=== PATIENT | female | born 1995 | race African-American/Black ===

== ENCOUNTER 2017-08-15 15:34 | Outpatient (CLI) | payer MEDICAID | END 2017-08-15 15:35 | disposition home or self-care (01) | LOC: BICULT 15:34 | PROVIDERS: ATTEND Family Medicine | DX: Z34.92 Encounter for supervision of normal pregnancy, unspecified, second trimester (principal); Z3A.20 20 weeks gestation of pregnancy | CPT/HCPCS: 76805 ==

== ENCOUNTER 2017-10-22 10:22 | Outpatient (CLI) | payer OTHER | END 2017-10-22 10:23 | disposition home or self-care (01) | LOC: BICULT 10:22 | PROVIDERS: ATTEND Family Medicine | DX: Z34.93 Encounter for supervision of normal pregnancy, unspecified, third trimester (principal); Z3A.29 29 weeks gestation of pregnancy | CPT/HCPCS: 76805 ==

== ENCOUNTER 2017-11-06 14:43 | Outpatient (CLI) | payer OTHER ==
--- NOTE | 2017-11-06 16:04 | ULT ---
ULTRASOUND BIOPHYSICAL PROFILE: HISTORY: 22-year-old female in third trimester of with gestational diabetes. FINDINGS: breathin tone: 2 movement: 2 Amniotic fluid volume: 2 IMPRESSION: Normal biophysical profile score of 8/8, excluding the non-stress test. elvis [] POS: [facility]
== END 2017-11-06 14:44 | disposition home or self-care (01) ==
LOC: ULT 14:43
PROVIDERS: ATTEND Nurse Practitioner
DX: O09.93 Supervision of high risk pregnancy, unspecified, third trimester (principal)
CPT/HCPCS: 76819

== ENCOUNTER 2017-11-27 14:37 | Outpatient (CLI) | payer OTHER ==
--- NOTE | 2017-11-27 17:25 | ULT ---
ULTRASOUND BIOPHYSICAL PROFILE: 11/27/2017 HISTORY: The patient is in the third trimester of with gestational diabetes. FINDINGS: There is a single intrauterine gestation, in cephalic presentation. Cardiac Doppler does demonstrate heart tones with a heart rate of 128 beats per minute. There is a normal amount of amni otic fluid with an amniotic fluid volume calculated at 19.7 cm. A score of 2 was obtained each for breathing, tone, movement, and amniotic fluid vo lume. The placenta is located anteriorly without evidence of placenta previa. IMPRESSION: 1. Single intrauterine gestation with heart tones documented. 2. A total biophysical profile score of 8/8 is obtained. POS: [facility]
== END 2017-11-27 14:38 | disposition home or self-care (01) ==
LOC: ULT 14:37
PROVIDERS: ATTEND Student in an Organized Health Care Education/Training Program
DX: O09.93 Supervision of high risk pregnancy, unspecified, third trimester (principal)
CPT/HCPCS: 76819

== ENCOUNTER 2017-12-08 21:00 | Inpatient (IN) | payer OTHER ==
[2017-12-08] MEDS ORDERED: Ibuprofen 800 MG TAB PO PRN (22:41)
[2017-12-08] MEDS ORDERED: Carboprost 250 MCG/ML AMP IM PRN (22:41)
[2017-12-08] MEDS ORDERED: Zolpidem Tartrate 5 MG TAB PO PRN (22:41)
[2017-12-08] MEDS ORDERED: HYDROcodone/Acetaminophen 5/325 mg Tablet PO PRN (22:41)
[2017-12-08] MEDS ORDERED: Lidocaine 1% (PF) 30 ML VIAL SC PRN (22:41)
[2017-12-08] MEDS ORDERED: NS / Oxytocin 40 units/1000ml 1,000 ML IV PRN (22:41)
[2017-12-08] MEDS ORDERED: Misoprostol 200 MCG TAB PR PRN (22:41)
[2017-12-08] MEDS ORDERED: Methylergonovine 0.2 MG/ML VIAL IM PRN (22:41)
[2017-12-08] MEDS ORDERED: Promethazine HCl 25 MG/ML VIAL IM PRN (22:41)
[2017-12-08] MEDS ORDERED: Diphenoxylate HCl/Atropine Tablet PO PRN (22:41)
[2017-12-08] MEDS ORDERED: Ondansetron HCl/PF 4 MG/2 ML Vial IVP PRN (22:41)
[2017-12-08] MEDS ORDERED: Acetaminophen 500 MG TAB PO PRN (22:41)
[2017-12-08 23:25] VITALS: BMI 65.7
[2017-12-09] MEDS: Lactated Ringer's 1,000 ML IV SCH ×3 (00:03→15:04)
[2017-12-09] MEDS: Misoprostol 100 MCG TAB VAG SCH ×4 (00:04→20:43)
[2017-12-09 00:36] LABS: Hemoglobin 11.4 g/dL (12.0-16.0); Mean Corpuscular HGB CONC 31.3 g/dL (32.0-36.0); Mean Corpuscular Hemoglobin 25.7 pg (25.0-35.0); Mean Corpuscular Volume 82.1 fl (77.0-87.0); Mean Platelet Volume 12.1 fL (7.4-10.4); Platelet Count 123 thou/uL (130-400); RBC Distribution Width 15.2 % (11.5-14.5); Red Blood Cell (RBC) Count 4.45 mill/uL (4.00-5.20); White Blood Cell (WBC) Count 7.6 thou/uL (4.8-10.8)
[2017-12-09 00:58] LABS: Syphilis Antibody Nonreactive (Nonreactive); Syphilis Antibody Index 0.08 S/CO (<1.00 Non-Reactive)
[2017-12-09 00:59] LABS: HBSAg Index 0.23 S/CO (0-0.99); Hep B Surf Ag Non-Reactive S/CO (NonReactive)
[2017-12-09 01:02] LABS: ALT (SGPT) 18 U/L (8-55); AST (SGOT) 23 U/L (5-34); Albumin 3.4 g/dL (3.5-5.0); Alkaline Phosphatase 216 U/L (40-150); Anion Gap 16 mmol/L (10-20); BUN (Urea Nitrogen) 7 mg/dL (7.0-18.7); Bilirubin, Total 0.5 mg/dL (0.2-1.2); Calc. Creatinine Clearance 373 mL/min (70-130); Calcium 9.1 mg/dL (7.8-10.44); Carbon Dioxide 17 mmol/L (22-29); Chloride 108 mmol/L (98-107); Estimated GFR-MDRD Greater than 90; Globulin 3.1 g/dL (2.4-3.5); Glucose 81 mg/dL (70-105); Potassium 4.3 mmol/L (3.5-5.1); Protein, Total 6.5 g/dL (6.0-8.3); Sodium 137 mmol/L (136-145)
[2017-12-09] MEDS: Butorphanol Tartrate 1 MG/ML VIAL SLOW IVP PRN ×2 (04:19→06:06)
[2017-12-09] MEDS: NS w/ Oxytocin 10 units 500 ML IV SCH (06:14)
[2017-12-09] MEDS ORDERED: DISCONTINUE ALL PREVIOUS NARCOTICS FS SCH (07:45)
[2017-12-09] MEDS ORDERED: Bupivacaine 0.5% 20 ML, fentaNYL Citrate/PF 400 MCG in Sodium Chloride 0.9% 72 ML EPIDURAL SCH ×2 (07:45→10:00)
--- NOTE | 2017-12-09 07:56 | PDOC.LDHP ---
Labor and Delivery H&P Chief complaint: scheduled induction HPI: 22yo at 37w3d by 20w sono with uncontrolled A2GDM, on insulin, morbid obesity for IOL. s/p cytotec x 1. Painful ctx 02/14. Current gestational age (weeks): 37 Due date: 12/27/17 Dating criteria: second trimester ultrasound Grav: 1 Para: 0 Current complications: gestational diabetes (on insulin, uncontrolled until 1 wk ago) Abnormal US findings: Yes (S>D) Past Medical History: obesity Current medications: pre- vitamins, other (NPH/lispro) Previous surgical history: none Allergies/Adverse Reactions: Allergies Allergy/AdvReac Type Severity Reaction Status Date / Time No Known Allergies Allergy Verified 12/08/17 23:11 Social history: none - Physical Exam Abnormal vital signs: mild range bp General: NAD Heart: RRR Lungs: CTAB Abdomen: gravid Extremeties: pitting edema (1+) FHT: category 1 [place] contractions every: 1-3min - Vaginal Exam cm dilated: 3 Effacement: 90% Station: -2 (arom clear IUP FSE placed) - OB Labs Blood type: O RH: positive Antibody Screen: negative HIV: negative RPR: negative HEPSAg: negative 1 hour GCT: positive GBS: negative Urine drug screen: negative Rubella: immune - Assessment L&D Assessment: medically indicated induction - Plan Plan: admit to L&D, labor augmentation if indicated, informed consent obtained, anesthesia consult for pain management -: Patient was a late transfer [place], with GDM at 34wk but untreated. Pt had uncontrolled BS with diet alone (>200) and was started on insulin 2wk ago. Pt has had fair control since starting insulin. EFW on sono > 99%ile, NST and BPPs have been reassuring. Took PM NPH insulin, Accuchecks q4hr, have been normal, will use SSI prn. Mildly elevated BP (difficult to get accurate reading ) No sx PIH, montior BP, send UA, PIH labs neg except mildly decr Plt. Anesthesia consult for morbid obesity, pt is at high risk for CS and complications due to above reasons and she understands this. FHT reassuring, internals placed to allow for better monitoring.
[2017-12-09] MEDS ORDERED: Eucerin (Mineral Oil/Petrolatum,White) 30 gm Jar TOP PRN ×2 (09:48→19:29)
[2017-12-09] MEDS ORDERED: Promethazine HCl 25 MG/ML VIAL IM PRN ×3 (09:48→22:56)
[2017-12-09] MEDS ORDERED: Naloxone HCl 0.4 mg/ml Vial IVP PRN ×3 (09:48→19:29)
[2017-12-09] MEDS ORDERED: Lactated Ringer's 500 ML IV PRN (09:48)
[2017-12-09] MEDS ORDERED: Acetaminophen 325 MG TAB PO PRN ×2 (09:48→22:56)
[2017-12-09] MEDS ORDERED: ePHEDrine/0.9% NaCl/PF SYRINGE 50 mg/10 ml SLOW IVP PRN (09:48)
[2017-12-09] MEDS ORDERED: Fentanyl 4mcg/Marcaine 0.1% Cassette 100 ML EPIDURAL SCH (10:00)
[2017-12-09] MEDS ORDERED: Communication Order-Pharmacy FS SCH ×2 (10:00→19:30)
[2017-12-09] MEDS ORDERED: Ketorolac Tromethamine 30 MG/ML VIAL ONE (13:37)
[2017-12-09] MEDS ORDERED: Dexamethasone 20 MG/5 ML VIAL ONE (13:37)
--- NOTE | 2017-12-09 14:52 | PDOC.LDPN ---
Labor & Delivery Progress Note - Subjective Subjective: comfortable - Objective Vital signs reviewed and normal: yes General: NAD Uterine fundus: non tender Dilation: 8 Effacement: 100% Station: 0 FHT: category 2, late decelerations, absent or minimal variables [place] contractions every: 2min Resuscitative measures: maternal oxygen, maternal position change, other ( pitocin off) Plan: resuscitative measures -: allow to rest with resuscitative measures, once Cat 1 restart pitocin. Working epidural.
--- NOTE | 2017-12-09 18:43 | PDOC.LDPN ---
Labor & Delivery Progress Note - Subjective Subjective: vaginal pressure - Objective Vital signs reviewed and normal: yes Abnormal vital signs: occasional mild range pressures General: NAD Uterine fundus: non tender Dilation: 10 Effacement: 100% Station: 1+ FHT: category 2, late decelerations (< 50% contractions), absent or minimal variables [place] contractions every: q2-3min - Assessment (1) Gestational diabetes mellitus (GDM) requiring insulin Code(s): O24.414 - GESTATIONAL DIABETES IN , INSULIN CONTROLLED Current Visit: Yes Status: Acute (2) Gestational hypertension Code(s): O13.9 - GESTATIONAL HTN W/O SIGNIFICANT PROTEINURIA, UNSP TRIMESTER Current Visit: Yes Status: Acute (3) 37 weeks gestation of Code(s): Z3A.37 - 37 WEEKS GESTATION OF Current Visit: Yes Status : Acute -: FHT Cat 2- pitocin off, on O2, positioned on side. Pt unable to move about due to habitus and is exhausted. She is requesting CS. FHT improved after pitocin off. Tmax 102- started Amp/Gent, given tylenol. Chorioamnionitis. Dispo for PCS due to NRFHT and maternal exhaustion. Risks of infection bleeding transfusion wound complications (corinne with patient's obesity) discussed. Pt understands and wishes to proceed. All questions answered. Occ mild BP, no sx PIH, labs wnl.
[2017-12-09] MEDS ORDERED: CEFAZOLIN/Water 2 GM/20 ML SYRINGE ONE (18:50)
[2017-12-09] MEDS ORDERED: Bicitra 30 ML UDCUP ONE (18:50)
[2017-12-09] MEDS ORDERED: CEFAZOLIN/Water 2 GM/20 ML SYRINGE SLOW IVP SCH (19:00)
[2017-12-09] MEDS ORDERED: Bicitra 30 ML UDCUP PO SCH (19:00)
[2017-12-09] MEDS ORDERED: Azithromycin 500 MG in Sodium Chloride 0.9% 250 ML 250 ML IVPB SCH (19:00)
[2017-12-09] MEDS ORDERED: Lidocaine 2% 10 ML INJ ONE (19:08)
[2017-12-09] MEDS ORDERED: Ketorolac Tromethamine 30 MG/ML VIAL IVP PRN (19:29)
[2017-12-09] MEDS ORDERED: diphenhydrAMINE 50 MG/ML VIAL IVP PRN (19:29)
[2017-12-09] MEDS ORDERED: Meperidine HCl/PF 25 MG/ML VIAL SLOW IVP PRN (19:29)
[2017-12-09] MEDS ORDERED: Promethazine HCl 25 MG SUPP PR PRN (19:29)
[2017-12-09] MEDS ORDERED: HYDROmorphone 2 MG/ML VIAL SLOW IVP PRN (19:29)
[2017-12-09] MEDS ORDERED: Ondansetron HCl/PF 4 MG/2 ML Vial IVP PRN ×3 (19:29→22:56)
[2017-12-09] MEDS ORDERED: Naloxone HCl 0.4 mg/ml Vial IV PRN (19:29)
[2017-12-09] MEDS ORDERED: Ketorolac Tromethamine 30 MG/ML VIAL IVP SCH (19:30)
[2017-12-09] MEDS ORDERED: Dexamethasone 4 mg/ml Vial ONE (19:34)
[2017-12-09] MEDS ORDERED: PHENYLEPHRINE-NS 100 MCG/ML 10 ML SYRINGE ONE (19:38)
[2017-12-09 19:44] LABS: Actual Bicarbonate (HCO3a) 24.1 mEq/L (22-28)
[2017-12-09 19:45] LABS: Analyzer IN Cardio OR; Base Excess (BEa) -5.3 mEq/L (-2.0 to +3.0)
--- NOTE | 2017-12-09 20:22 | PDOC.OPDEL ---
OB Operative/Delivery Note Delivery Dr/Surgeon: Jesika Assist: Herb Pre-Delivery Diagnosis: non-reassuring tracing Procedure/Post Delivery Dx: primary low transverse CS (ID GDM, GHTN) Weeks gestation: 37 Anesthesia: epidural - Findings A Sex: male Weight: 8 lb 8 oz - 1 min: 6 - 5 min: 9 - Additional Findings/Plan Placenta delivered: spontaneous findings: low transverse hysterotomy without extension, normal uterus, normal tubes, normal ovaries Estimated blood loss: 1000 Compilations/Other Findings: recurrent deep late decelerations to 60s prior to going to OR, in OR baby in 120s, stat CS proceeded with, Cord ph 7.2, placenta to pathology. Post delivery plan: routine recovery
[2017-12-09] MEDS ORDERED: Meperidine HCl/PF 25 MG/ML VIAL ONE (20:46)
[2017-12-09] MEDS: Gentamicin Sulfate 490 MG in Sodium Chloride 0.9% 100 ML IVPB SCH (20:52)
[2017-12-09] MEDS ORDERED: Morphine 4 MG/ML VIAL ONE (21:16)
[2017-12-09] MEDS ORDERED: Clindamycin/D5W 900 mg/50 ml Premix Bag ONE (21:56)
[2017-12-09] MEDS: Clindamycin/D5W 900 MG in Premix Bag 1 BAG IVPB SCH (22:14)
[2017-12-09] MEDS ORDERED: Labetalol 100 MG TAB PO SCH (22:30)
[2017-12-09] MEDS ORDERED: diphenhydrAMINE 25 MG CAP PO PRN (22:56)
[2017-12-09] MEDS ORDERED: Simethicone Chewable 80 MG TAB PO PRN (22:56)
[2017-12-09] MEDS ORDERED: Lanolin Ointment 7 GM TUBE TOP PRN (22:56)
[2017-12-09] MEDS ORDERED: HYDROcodone/Acetaminophen 5/325 mg Tablet PO PRN ×2 (22:56)
[2017-12-09] MEDS ORDERED: Bisacodyl 10 MG SUPP PR PRN (22:56)
[2017-12-09] MEDS ORDERED: Ibuprofen 800 MG TAB PO SCH (23:15)
[2017-12-09] MEDS ORDERED: Docusate Calcium (SURFAK) 240 MG CAP PO SCH (23:15)
[2017-12-09] MEDS ORDERED: Ampicillin 2 GM in Sodium Chloride 0.9% 100 ML IVPB SCH (23:59)
--- NOTE | 2017-12-10 01:59 | OP ---
DATE OF OPERATION: 12/09/2017 PREOPERATIVE DIAGNOSES: 1. Intrauterine at 37 weeks and 3 days. 2. Nonreassuring heart tones. 3. Insulin-dependent gestational diabetes, uncontrolled. 4. Gestational hypertension. 5. Morbid obesity. 6. Chorioamnionitis. POSTOPERATIVE DIAGNOSES: 1. Intrauterine at 37 weeks and 3 days. 2. Nonreassuring heart tones. 3. Insulin-dependent gestational diabetes, uncontrolled. 4. Gestational hypertension. 5. Morbid obesity. 6. Chorioamnionitis. PROCEDURE: Primary low transverse section via Pfannenstiel skin incision. ANESTHESIA: Epidural. ATTENDING SURGEON: Mariah Canchola M.D. CHILD PSYCHIATRIST: Dr. Jaime. ESTIMATED BLOOD LOSS: One liter. INTRAVENOUS FLUIDS: 1200 mL crystalloid. URINE OUTPUT: 100 mL of blood tinged urine. PATHOLOGY: Placenta. COMPLICATIONS: None. DRAINS: Napoles catheter. FINDINGS: Male infant, cephalic presentation, and significant caput and molding. Apgars of 6 and 9. Clear amniotic fluid, weighing 8 pounds and 8 ounces. Cord pH was 7.2. OPERATIVE TECHNIQUE: Patient was taken to the operating room, where epidural anesthesia was found to be adequate. FHTs once in the OR were in the 120s. Prior to this, FHTs were deep recurrently decel erations 260s. Patient was prepped and draped in a sterile fashion. A Pfannenstiel skin incision wa s made and carried down to the underlying subcutaneous tissue with the knife. The fascia was nicked in the midline with the knife and carried laterally with the Garcia scissors. The superior aspect of t he fascia was tented with 2 Kochers and dissected off the rectus with the Garcia scissors. The inferio r aspect of the fascia was tented with 2 Kochers and dissected off the rectus with the Garcia scissors down to the pubic symphysis. The rectus were bluntly divided in the midline. The peritoneum was ten dolly up with hemostat and entered into sharply with the Metzenbaums and manually retracted. The Hima s O retractor was placed and the vesicouterine peritoneum was identified and a bladder flap was creat ed. Lower uterine segment was incised in a transverse fashion extended with Fleming maneuver. The infa nt's head was brought to the hysterotomy and delivered with fundal pressure. The 's cord was c lamped and handed to awaiting trent team. A cord gas was obtained and cord blood was obtained and antonia dominguez was allowed to spontaneously deliver. Trailing membranes were removed with a laparotomy sponge. The hysterotomy was repaired with #1 Monocryl in a running locking fashion. A second imbricating l mayra of #1 Monocryl was placed. Hemostasis was noted to be excellent. Pelvis was irrigated and suct ioned and the Jag O retractor was removed. The peritoneum was closed with a 2-0 chromic in a runn ing fashion. The rectus muscles were examined and noted to be hemostatic. The fascia was reapproxim ated with an 0 PDS x2 with excellent reapproximation. The subcutaneous tissue was irrigated and caut erized of any bleeders and reapproximated with 2-0 plain gut in a running fashion. Skin was closed w ith 4-0 Monocryl in a subcuticular fashion and Steri-Strips were applied as well as Prevena wound VAC . Patient tolerated procedure well. Sponge, lap, and needle counts were correct x2. Patient was ta belkis to recovery room in stable condition. Patient received Ancef 3 grams and azithromycin 500 mg for prophylaxis and will be continued on ampicillin, gentamicin, and clindamycin for chorioamnionitis.
[2017-12-10 05:38] LABS: Hemoglobin 10.3 g/dL (12.0-16.0); Mean Corpuscular HGB CONC 31.8 g/dL (32.0-36.0); Mean Corpuscular Hemoglobin 25.6 pg (25.0-35.0); Mean Corpuscular Volume 80.5 fl (77.0-87.0); Mean Platelet Volume 11.7 fL (7.4-10.4); Platelet Count 124 thou/uL (130-400); RBC Distribution Width 15.3 % (11.5-14.5); Red Blood Cell (RBC) Count 4.02 mill/uL (4.00-5.20); White Blood Cell (WBC) Count 17.6 thou/uL (4.8-10.8)
[2017-12-10] MEDS: Clindamycin/D5W 900 MG in Premix Bag 1 BAG IVPB SCH ×3 (06:14→21:30)
[2017-12-10] MEDS ORDERED: Bupivacaine 0.25% HCL 30 ML VIAL ONE (08:28)
[2017-12-10] MEDS ORDERED: Terbutaline Sulfate 1 MG/ML VIAL ONE (08:28)
[2017-12-10] MEDS: Ibuprofen 800 MG TAB PO SCH ×3 (08:45→21:29)
[2017-12-10] MEDS: Ferrous Sulfate 325 MG TAB PO SCH ×2 (08:52→17:56)
[2017-12-10] MEDS: NS w/ Oxytocin 10 units 500 ML IV SCH (08:52)
[2017-12-10] MEDS: Lactated Ringer's 1,000 ML IV SCH (08:52)
[2017-12-10] MEDS ORDERED: Adacel (T-DAP) 0.5 ML VIAL IM ONE (09:00)
[2017-12-10] MEDS: Enoxaparin Sodium 40 MG/0.4 ML SYRINGE SC SCH (09:41)
[2017-12-10] MEDS: Prenatal Vitamin 1 TAB PO SCH (09:41)
[2017-12-10] MEDS: Docusate Calcium (SURFAK) 240 MG CAP PO SCH ×2 (09:41→21:29)
[2017-12-10] MEDS: Ampicillin 2 GM in Sodium Chloride 0.9% 100 ML IVPB SCH ×3 (12:35→23:39)
--- NOTE | 2017-12-10 13:35 | PDOC.PP ---
Post Progress Note Post Day #: 1 PO intake tolerated: yes Flatus: no Ambulation: no Vital Signs (12 hours) Temp Pulse Resp BP 12/10/17 12:00 97.9 F 99 20 12/10/17 11:50 97.9 F 99 20 140/79 12/10/17 08:00 98.5 F 109 H 20 12/10/17 07:50 98.5 F 109 H 20 140/82 12/10/17 04:00 98.4 F 111 H 18 136/84 12/10/17 03:04 99.7 F H 100 20 Weight Weight 371 lb - Physical Examination General: NAD Deviation from normal: tachycardic, RR Respiratory: non-labored breathing Abdominal: no distention, appropriately TTP Extremities: negative homans (B) Neurological: no gross focal deficits Psychiatric: normal affect Result Diagrams: 12/10/17 04:20 12/09/17 00:01 Additional Labs: Post Labs Blood Type A POSITIVE 12/09/17 00:01 Hep Bs Antigen Non-Reactive S/CO (NonReactive) 12/09/17 00:01 (1) Gestational diabetes mellitus (GDM) requiring insulin Code(s): O24.414 - GESTATIONAL DIABETES IN , INSULIN CONTROLLED Status: Acute (2) Gestational hypertension Code(s): O13.9 - GESTATIONAL HTN W/O SIGNIFICANT PROTEINURIA, UNSP TRIMESTER Status: Acute Qualifiers: Trimester: third trimester Qualified Code(s): O13.3 - Gestational [ -induced] hypertension without significant proteinuria, third trimester (3) 37 weeks gestation of Code(s): Z3A.37 - 37 WEEKS GESTATION OF Status: Acute - Assessment/Plan POD1 from [facility] for NRFHT. Mildly tachycardic, asymptomatic, likely due to chorio. Will cont A/G/C x 48hr GDM- needs 2hr GTT GHTN- neg labs, no sx. Monitor BP, will treat persistent mild range BP Routine postop advances Bottlefeeding Rh pos, RImm Mild anemia d/t surgical blood loss, cont PNV on DC Cont postop care
[2017-12-10] MEDS: Gentamicin Sulfate 490 MG in Sodium Chloride 0.9% 100 ML IVPB SCH (19:52)
[2017-12-11] MEDS ORDERED: Sodium Chloride 0.9% 10 ML ONE ×2 (00:34→05:41)
[2017-12-11] MEDS: Clindamycin/D5W 900 MG in Premix Bag 1 BAG IVPB SCH ×2 (05:05→14:09)
[2017-12-11] MEDS: Ibuprofen 800 MG TAB PO SCH ×3 (05:05→22:11)
[2017-12-11] MEDS: Ampicillin 2 GM in Sodium Chloride 0.9% 100 ML IVPB SCH ×2 (08:03→12:57)
[2017-12-11] MEDS: Ferrous Sulfate 325 MG TAB PO SCH ×2 (08:05→14:11)
[2017-12-11] MEDS: Prenatal Vitamin 1 TAB PO SCH (09:42)
[2017-12-11] MEDS: Enoxaparin Sodium 40 MG/0.4 ML SYRINGE SC SCH (09:42)
[2017-12-11] MEDS: Docusate Calcium (SURFAK) 240 MG CAP PO SCH ×2 (09:42→22:11)
--- NOTE | 2017-12-11 10:23 | PDOC.PP ---
Post Progress Note Post Day #: 2 PO intake tolerated: yes Flatus: yes Ambulation: yes Vital Signs (12 hours) Temp Pulse Resp BP 12/11/17 08:32 98.6 F 105 H 20 135/77 12/11/17 08:00 98.6 F 105 H 20 12/11/17 05:54 98.9 F 113 H 20 12/11/17 04:00 98.9 F 110 H 20 114/68 12/11/17 00:00 98.0 F 113 H 20 112/66 Weight Weight 371 lb - Physical Examination General: NAD Deviation from normal: tachycardic, RR Respiratory: clear to auscultation bilaterally, non-labored breathing Abdominal: no distention, appropriately TTP Extremities: negative homans (B) Skin: no rash Neurological: no gross focal deficits Psychiatric: normal affect Result Diagrams: 12/10/17 04:20 12/09/17 00:01 Additional Labs: Post Labs Blood Type A POSITIVE 12/09/17 00:01 Hep Bs Antigen Non-Reactive S/CO (NonReactive) 12/09/17 00:01 (1) Gestational diabetes mellitus (GDM) requiring insulin Code(s): O24.414 - GESTATIONAL DIABETES IN , INSULIN CONTROLLED Status: Acute (2) Gestational hypertension Code(s): O13.9 - GESTATIONAL HTN W/O SIGNIFICANT PROTEINURIA, UNSP TRIMESTER Status: Acute Qualifiers: Trimester: third trimester Qualified Code(s): O13.3 - Gestational [ -induced] hypertension without significant proteinuria, third trimester (3) 37 weeks gestation of Code(s): Z3A.37 - 37 WEEKS GESTATION OF Status: Acute - Assessment/Plan POD2 from [facility] for NRFHT, doing well Mild tachy, BP wnl. Check O2 Sat. On lovenox ppx. IS use. Met appropriate milestones. Cont postop care, home tomorrow if stable
[2017-12-12] MEDS: Ibuprofen 800 MG TAB PO SCH (06:22)
[2017-12-12] MEDS: Ferrous Sulfate 325 MG TAB PO SCH (07:34)
--- NOTE | 2017-12-12 08:20 | PDOC.PP ---
Post Progress Note Post Day #: 3 PO intake tolerated: yes Flatus: yes Ambulation: yes Vital Signs (12 hours) Temp Pulse Resp BP Pulse Ox 12/12/17 03:18 96 12/12/17 00:00 98.6 F 98 20 121/54 L 100 Weight Weight 371 lb - Physical Examination General: NAD Cardiovascular: RRR Respiratory: non-labored breathing Abdominal: no distention, appropriately TTP Extremities: negative homans (B) Skin: CS incision dry & intact (wound vac in place) Neurological: no gross focal deficits Psychiatric: normal affect Result Diagrams: 12/10/17 04:20 12/09/17 00:01 Additional Labs: Post Labs Blood Type A POSITIVE 12/09/17 00:01 Hep Bs Antigen Non-Reactive S/CO (NonReactive) 12/09/17 00:01 (1) Gestational diabetes mellitus (GDM) requiring insulin Code(s): O24.414 - GESTATIONAL DIABETES IN , INSULIN CONTROLLED Status: Acute (2) Gestational hypertension Code(s): O13.9 - GESTATIONAL HTN W/O SIGNIFICANT PROTEINURIA, UNSP TRIMESTER Status: Acute Qualifiers: Trimester: third trimester Qualified Code(s): O13.3 - Gestational [ -induced] hypertension without significant proteinuria, third trimester (3) 37 weeks gestation of Code(s): Z3A.37 - 37 WEEKS GESTATION OF Status: Acute - Assessment/Plan POD3 s/p PCS for NRFHT VSSAF doing well met all milestones S/p A/G/C for chorio, afebrile, nontender Rh pos RImm DC home FU next Saturday for wound vac removal.
[2017-12-12] MEDS: Prenatal Vitamin 1 TAB PO SCH (08:56)
[2017-12-12] MEDS: Enoxaparin Sodium 40 MG/0.4 ML SYRINGE SC SCH (08:56)
[2017-12-12] MEDS: Docusate Calcium (SURFAK) 240 MG CAP PO SCH (08:56)
[2017-12-12 09:26] VITALS: BP 124/62; TEMP 98
== END 2017-12-12 11:00 | disposition home or self-care (01) | DRG 765 ==
LOC: L&D 22:33 → 3SW 12-09 22:55
PROVIDERS: ADMIT Student in an Organized Health Care Education/Training Program; ATTEND Student in an Organized Health Care Education/Training Program
PROC: 10D00Z1 Extraction of Products of Conception, Low, Open Approach (ICD-10-PCS; principal; 2017-12-09)
DX: O76 Abnormality in fetal heart rate and rhythm complicating labor and delivery (principal); O41.1230 Chorioamnionitis, third trimester, not applicable or unspecified; Z68.44 Body mass index [BMI] 60.0-69.9, adult; O24.424 Gestational diabetes mellitus in childbirth, insulin controlled; O13.4 Gestational [pregnancy-induced] hypertension without significant proteinuria, complicating childbirth; O99.214 Obesity complicating childbirth; E66.01 Morbid (severe) obesity due to excess calories; Z71.3 Dietary counseling and surveillance; Z3A.37 37 weeks gestation of pregnancy; Z37.0 Single live birth
CPT/HCPCS: 36415; 36416; 51702; 80053; 80170; 82805; 84156; 85027; 86780; 86850; 86900; 86901; 87340; 88307; 94760; A4216; J0290; J0456; J0595; J1100; J1580; J1650; J1885; J2001; J2175; J2270; J3010; J3105; J3490; J7050; S0020

== ENCOUNTER 2018-09-10 12:10 | Emergency (ER) | payer OTHER, SELFPAY ==
[2018-09-10 12:36] LABS: #Basophils 0.1 thou/uL (0.0-0.2); #Eosinphils 0.2 thou/uL (0.0-0.7); #Lymphocytes 2.4 thou/uL (1.20-3.40); #Monocytes 0.5 thou/uL (0.11-0.59); #Neutrophils 4.4 thou/uL (1.40-6.50); %Basophils 0.9 % (0.0-1.0); %Eosinophils 2.2 % (0.0-10.0); %Lymphocytes 31.4 % (21.0-51.0); %Monocytes 6.2 % (0.0-10.0); %Neutrophils 59.3 % (42.0-75.0); Hemoglobin 12.3 g/dL (12.0-16.0); Mean Corpuscular HGB CONC 30.1 g/dL (32.0-36.0); Mean Corpuscular Hemoglobin 25.4 pg (27.0-31.0); Mean Corpuscular Volume 84.6 fL (78.0-98.0); Mean Platelet Volume 10.5 fL (7.4-10.4); Platelet Count 214 thou/uL (130-400); Red Blood Cell (RBC) Count 4.84 mill/uL (4.20-5.40); White Blood Cell (WBC) Count 7.5 thou/uL (4.8-10.8)
[2018-09-10 12:46] LABS: BHCG - Serum Negative (NEGATIVE); Pregs Control Background? CLEAR/WHITE (CLR/WHITE); Pregs Control Bar Appear? YES (CONTROL BAR)
== END 2018-09-10 13:21 | disposition home or self-care (01) ==
LOC: ERS 12:10
DX: N93.8 Other specified abnormal uterine and vaginal bleeding (principal)
CPT/HCPCS: 36415; 84702; 84703; 85025; 99284

== ENCOUNTER 2020-08-31 11:29 | Emergency (ER) | payer BC, SELFPAY ==
[2020-08-31 12:33] LABS: Bacteria/HPF 1+ HPF (None Seen); Bilirubin Negative (Negative); Blood, Urine Trace (Negative); Clarity Clear (Clear); Glucose, Urine (Dipstick) Normal (Negative); Ketone, Urine Negative (Negative); Leukocyte 75 Leu/uL (Negative); Nitrite Negative (Negative); Protein, Urine (Dipstick) 70 mg/dL (Neg-Trace); Specific Gravity, Urine 1.023 (1.002-1.036); Urobilinogen 3 mg/dL (Less than 2); WBC/HPF 21-50 HPF (0-3)
[2020-08-31 12:34] LABS: Pregnancy Test - Urine (BHCG) Negative (Negative); Pregu Control Background? CLEAR/WHITE (CLR/WHITE); Pregu Control Bar Appear? YES (CONTROL BAR); Specific Gravity 1.023 (1.002-1.036)
[2020-08-31 13:13] LABS: #Eosinphils 0.1 thou/uL (0.0-0.7); #Lymphocytes 2.1 thou/uL (1.20-3.40); #Monocytes 0.5 thou/uL (0.11-0.59); #Neutrophils 5.2 thou/uL (1.40-6.50); %Basophils 0.6 % (0.0-1.0); %Eosinophils 1.5 % (0.0-10.0); %Lymphocytes 26.9 % (21.0-51.0); %Monocytes 5.8 % (0.0-10.0); %Neutrophils 65.3 % (42.0-75.0); Hemoglobin 10.8 g/dL (12.0-16.0); Mean Corpuscular HGB CONC 31.4 g/dL (32.0-36.0); Mean Corpuscular Hemoglobin 25.7 pg (27.0-31.0); Mean Platelet Volume 10.1 fL (7.4-10.4); Platelet Count 225 thou/uL (130-400); RBC Distribution Width 14.4 % (11.5-14.5); Red Blood Cell (RBC) Count 4.19 mill/uL (4.20-5.40); White Blood Cell (WBC) Count 7.9 thou/uL (4.8-10.8)
[2020-08-31 13:35] LABS: Anion Gap 11 mmol/L (10-20); BUN (Urea Nitrogen) 6 mg/dL (7.0-18.7); Calc. Creatinine Clearance 0 mL/min (70-130); Calcium 8.2 mg/dL (7.8-10.44); Carbon Dioxide 27 mmol/L (22-29); Chloride 105 mmol/L (98-107); Glucose 117 mg/dL (70-105); Potassium 3.6 mmol/L (3.5-5.1); Sodium 139 mmol/L (136-145)
== END 2020-08-31 14:15 | disposition home or self-care (01) ==
LOC: ERS 11:29
DX: N92.6 Irregular menstruation, unspecified (principal); N39.0 Urinary tract infection, site not specified; R03.0 Elevated blood-pressure reading, without diagnosis of hypertension; D64.9 Anemia, unspecified
CPT/HCPCS: 36415; 80048; 81003; 81015; 81025; 85025; 99284

== ENCOUNTER 2021-08-09 10:21 | Outpatient (CLI) | payer BC, OTHER | END 2021-08-09 10:22 | disposition home or self-care (01) | LOC: BICULT 10:21 | PROVIDERS: ATTEND Family Medicine | DX: O09.92 Supervision of high risk pregnancy, unspecified, second trimester (principal); Z3A.25 25 weeks gestation of pregnancy | CPT/HCPCS: 76805 ==

== ENCOUNTER 2023-08-20 14:41 | Outpatient (CLI) | payer OTHER | END 2023-08-20 14:42 | disposition home or self-care (01) | LOC: RAD 14:41 | PROVIDERS: ATTEND Internal Medicine | DX: R06.00 Dyspnea, unspecified (principal); I51.7 Cardiomegaly | CPT/HCPCS: 71046 ==

== ENCOUNTER 2024-02-17 10:00 | Inpatient (IN) | payer OTHER ==
[2024-02-17 11:02] VITALS: BMI 66.1
[2024-02-24] MEDS ORDERED: Ketorolac Tromethamine 30 MG (1 mL) VIAL ONE (10:47)
[2024-02-24] MEDS ORDERED: Heparin 5,000 UNITS/ML VIAL ONE (10:47)
[2024-02-24] MEDS ORDERED: Acetaminophen 500 MG TAB ONE (10:48)
[2024-02-24] MEDS ORDERED: Sodium Chloride 0.9% 100 ML ONE (10:48)
[2024-02-24] MEDS ORDERED: CEFAZOLIN 2 GM VIAL ONE (10:48)
[2024-02-24] MEDS ORDERED: fentaNYL 50 mcg/mL 1 mL Vial ONE ×3 (10:56→16:44)
[2024-02-24] MEDS ORDERED: Bupivacaine 0.25% HCL 30 ML VIAL ONE ×2 (10:57→12:09)
[2024-02-24] MEDS ORDERED: Midazolam HCl 2 mg/2 ml Vial ONE (10:57)
[2024-02-24] MEDS ORDERED: Ondansetron PF 4 MG/2 ML Vial ONE ×2 (10:59→17:34)
[2024-02-24] MEDS ORDERED: Rocuronium Bromide 10 MG/ML (10ML VIAL) ONE (10:59)
[2024-02-24] MEDS ORDERED: Fentanyl 250 MCG/5 ML VIAL ONE (10:59)
[2024-02-24] MEDS ORDERED: Dexamethasone 4 mg/ml Vial ONE (10:59)
[2024-02-24] MEDS ORDERED: SUGAMMADEX SODIUM 200 MG/2 ML VIAL ONE (10:59)
[2024-02-24] MEDS ORDERED: Lidocaine 1% PF 5 ML VIAL ONE (10:59)
[2024-02-24] MEDS ORDERED: PROPOFOL 20 ML ONE (10:59)
[2024-02-24] MEDS ORDERED: Scopolamine 1 mg/72 hour Patch ONE (11:20)
[2024-02-24] MEDS ORDERED: EPINEPHrine 1 MG/ML VIAL ONE (12:09)
[2024-02-24] MEDS ORDERED: Indocyanine Green 25 MG/10 ML VIAL ONE (12:34)
[2024-02-24] MEDS ORDERED: Lidocaine 1% (PF) 30 ML VIAL ONE (12:35)
[2024-02-24] MEDS ORDERED: Ondansetron HCl/PF 4 MG/2 ML Vial IVP PRN (14:15)
[2024-02-24] MEDS ORDERED: Promethazine HCl 25 MG/ML VIAL IM PRN (14:15)
[2024-02-24] MEDS ORDERED: Labetalol HCl 100 MG/20 ML VIAL ONE (16:25)
[2024-02-24] MEDS ORDERED: Promethazine HCl 25 MG/ML VIAL ONE (16:38)
[2024-02-24] MEDS ORDERED: hydrALAZINE 20 MG/ML VIAL ONE (17:28)
[2024-02-24] MEDS ORDERED: D5 1/2 NS w/20 mEq KCL 1,000 ML ONE (18:40)
[2024-02-24] MEDS ORDERED: Hydrocodone-Acetamin 15 ML UDCUP PO PRN (19:08)
[2024-02-24] MEDS ORDERED: Morphine 2 MG/ML VIAL SLOW IVP PRN (19:08)
[2024-02-24] MEDS ORDERED: Ondansetron PF 4 MG/2 ML Vial IVP PRN (19:08)
[2024-02-24] MEDS ORDERED: Insulin Regular, Human 100 UNIT/ML 10 ML VIAL SC PRN (19:08)
[2024-02-24] MEDS ORDERED: hydrALAZINE 20 MG/ML VIAL SLOW IVP PRN (19:08)
[2024-02-24] MEDS ORDERED: Glucagon 1 MG/ML KIT IM PRN (19:08)
[2024-02-24] MEDS ORDERED: Dextrose 5% in Water 1,000 ML IV PRN (19:08)
[2024-02-24] MEDS ORDERED: Ipratropium/Albuterol 3 ML NEB NEB PRN (19:08)
[2024-02-24] MEDS ORDERED: Dextrose 50% Abboject 50 ML SYRINGE SLOW IVP PRN (19:08)
[2024-02-24] MEDS ORDERED: Morphine 4 MG/ML VIAL SLOW IVP PRN (19:08)
[2024-02-24] MEDS ORDERED: diphenhydrAMINE 50 MG/ML VIAL IVP PRN (19:08)
[2024-02-24] MEDS: Promethazine HCl 25 MG/ML VIAL IM PRN (20:05)
[2024-02-24] MEDS: Ketorolac Tromethamine 30 MG (1 mL) VIAL IVP SCH (20:06)
[2024-02-24] MEDS: 1/2 NS w/Potassium 20 mEq 1,000 ML IV SCH (21:15)
[2024-02-25] MEDS: Ketorolac Tromethamine 30 MG (1 mL) VIAL IVP SCH (00:30)
[2024-02-25 06:14] LABS: #Basophils Less than 0.03 10x3/uL (0.0-0.2); #Eosinphils Less than 0.03 10x3/uL (0.0-0.7); %Basophils 0.1 % (0.0-1.0); %Lymphocytes 11.6 % (21.0-51.0); %Monocytes 2.5 % (0.0-10.0); %Neutrophils 85.5 % (42.0-75.0); Hematocrit 39.5 % (36.0-47.0); Hemoglobin 12.3 g/dL (12.0-16.0); Mean Corpuscular HGB CONC 31.1 g/dL (32.0-36.0); Mean Corpuscular Hemoglobin 25.8 pg (27.0-31.0); Mean Corpuscular Volume 82.8 fL (78.0-98.0); Mean Platelet Volume 12.8 fL (7.4-10.4); Platelet Count 238 10x3/uL (130-400); RBC Distribution Width 14.2 % (11.5-14.5); Red Blood Cell (RBC) Count 4.77 mill/uL (4.20-5.40)
[2024-02-25 06:29] LABS: Anion Gap 14 mmol/L (10-20); BUN (Urea Nitrogen) 6 mg/dL (7.0-18.7); Calc. Creatinine Clearance 332 mL/min (70-130); Calcium 9.1 mg/dL (7.8-10.44); Carbon Dioxide 24 mmol/L (22-29); Chloride 105 mmol/L (98-107); Estimated GFR 123; Glucose 114 mg/dL (70-105); Potassium 3.9 mmol/L (3.5-5.1); Sodium 139 mmol/L (136-145)
[2024-02-25] MEDS: Enoxaparin 40 MG (0.4 mL) SYRINGE SC SCH (10:16)
[2024-02-25] MEDS: Acetaminophen 325 MG (10.15 ML) UDCUP PO PRN (10:17)
[2024-02-25] MEDS: Lisinopril 5 MG TAB PO SCH (10:17)
[2024-02-25] MEDS: Pantoprazole 40 MG VIAL IVP SCH (10:17)
[2024-02-25] MEDS: metFORMIN 500 MG TAB PO SCH (10:17)
[2024-02-25 16:24] VITALS: BP 136/81; TEMP 98
== END 2024-02-25 18:03 | disposition home or self-care (01) | DRG 621 ==
LOC: SURG A 02-24 10:16
PROVIDERS: ADMIT Specialist; ATTEND Specialist
PROC: 0DB64Z3 Excision of Stomach, Percutaneous Endoscopic Approach, Vertical (ICD-10-PCS; principal; 2024-02-24)
PROC: 8E0W4CZ Robotic Assisted Procedure of Trunk Region, Percutaneous Endoscopic Approach (ICD-10-PCS; 2024-02-24)
PROC: 3E033XZ Introduction of Vasopressor into Peripheral Vein, Percutaneous Approach (ICD-10-PCS; 2024-02-24)
DX: E66.01 Morbid (severe) obesity due to excess calories (principal); E11.9 Type 2 diabetes mellitus without complications; Z68.44 Body mass index [BMI] 60.0-69.9, adult; I10 Essential (primary) hypertension; Z98.891 History of uterine scar from previous surgery; Z79.899 Other long term (current) drug therapy
CPT/HCPCS: 36415; 36416; 80048; 85025; 88307; 94760; J0171; J0360; J0665; J1100; J1644; J1650; J1885; J2001; J2250; J2405; J2470; J2550; J2704; J3010; J3480